=== PATIENT | male | born 1990 | race Caucasian/White ===

== ENCOUNTER 2025-01-13 14:16 | Emergency (ER) | payer OTHER ==
[~2025-01-13] VITALS: Ht 177.8 cm; Wt 86.0 kg
[2025-01-13 14:19] VITALS: O2SAT 100
[2025-01-13] MEDS: HYDROCODONE/ACETAMINOPHEN 5/325MG TABLET PO ONE (16:18)
[2025-01-13] MEDS ORDERED: IBUP-2030 MT (17:09)
[2025-01-13 17:52] VITALS: BP 110/80; PULSE 98; RESP 16; TEMP 36.7; O2SAT 100
== END 2025-01-13 17:53 | disposition home or self-care (01) ==
LOC: ER 14:16
DX: S52.501A Unspecified fracture of the lower end of right radius, initial encounter for closed fracture (principal); S32.058A Other fracture of fifth lumbar vertebra, initial encounter for closed fracture; R07.89 Other chest pain; M54.2 Cervicalgia; I10 Essential (primary) hypertension; Z88.0 Allergy status to penicillin; V89.2XXA Person injured in unspecified motor-vehicle accident, traffic, initial encounter; Y93.89 Activity, other specified; Y92.410 Unspecified street and highway as the place of occurrence of the external cause; Y99.8 Other external cause status
CPT/HCPCS: 99284; 70450; 73030; 73110; 72125; 71250; 74176; 29125; A6449; A4565